=== PATIENT | male | born 1970 | race African-American/Black ===

== ENCOUNTER → 2016-09-06 | Outpatient (CLI) | payer OTHER ==
--- NOTE | 2016-09-06 12:35 | CT ---
EXAMINATION TYPE: CT lumbar spine wo con DATE OF EXAM: 09/06/2016 12:28 PM COMPARISON: NONE HISTORY: Patient complains of lower back pain with radiation to the right leg. CT DLP: 1292.8 mGycm CONTRAST: Unenhanced CT of the lumbar spine is performed.. Unenhanced CT of the lumbar spine was performed. Bone and soft tissue window settings are submitted as well as coronal and sagittal reconstructions. L1-L2: Normal disc space height. No disc herniation protrusion or central stenosis. No facet joint arthropathy. No evidence for foraminal encroachment. L2-L3: Normal disc space height. No disc herniation protrusion or central stenosis. No facet joint arthropathy. No evidence for foraminal encroachment. L3-L4: Normal disc space height. No disc herniation protrusion or central stenosis. No facet joint arthropathy. No evidence for foraminal encroachment. L4-L5: Mild degenerative disc space narrowing. Right paracentral disc herniation which effaces the ve ntral thecal sac. There is right lateral recess stenosis. Right foraminal encroachment noted. Borderl ine central stenosis suggested. L5-S1: Mild degenerative narrowing. Broad-based posterior disc bulge. Mild effacement ventral thecal sac. No larry herniation protrusion or central stenosis. No paraspinal masses are identified. Lumbar segments are free if fracture. IMPRESSION: 1. Right paracentral disc herniation at L4-5 with right lateral recess stenosis and borderline centra l stenosis.
== END | disposition home or self-care (01) ==
LOC: RADCTMAIN 11:57
PROVIDERS: ATTEND Family Medicine
DX: M48.06 Spinal stenosis, lumbar region (principal); M51.26 Other intervertebral disc displacement, lumbar region
CPT/HCPCS: 72131

== ENCOUNTER → 2016-11-30 | Outpatient (CLI) | payer OTHER ==
[2016-11-24 11:49] VITALS: BMI 31.4
[2016-11-30 13:46] VITALS: BP 156/95; PULSE 112; RESP 16; TEMP 98.6
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
== END | disposition home or self-care (01) ==
LOC: PNWHC3 13:13
PROVIDERS: ATTEND Anesthesiology
DX: M54.5 Low back pain (principal); Z53.9 Procedure and treatment not carried out, unspecified reason

== ENCOUNTER → 2016-12-14 | Outpatient (CLI) | payer OTHER ==
--- NOTE | 2016-12-14 07:50 | MR ---
EXAMINATION TYPE: MR cervical spine wo con DATE OF EXAM: 12/14/2016 7:32 AM COMPARISON: NONE HISTORY: CERVICAL SPONDYLOSIS MYOPATHY Multiplanar MultiSpin echo imaging of the cervical spine was performed. Comparison: none C2-C3: No evidence for degenerative disc disease. No disc bulge/herniation or protrusion. No Canal stenosis. Foramina are patent bilaterally. C3-C4: There is mild disc desiccation. Right paracentral disc protrusion effaces the ventral thecal s ac. Minimal ventral CORD contact suggested. No evidence for central stenosis or compressive myelopath y. Degenerative change of the cervical apophyseal joints resulting in mild bilateral right greater th an left encroachment. C4-C5: No evidence for degenerative disc disease. No disc bulge/herniation or protrusion. No Canal stenosis. Foramina are patent bilaterally. C5-C6: Moderate disc desiccation noted. Broad-based subligamentous herniation is mild in degree. No e vidence for cord contact or central stenosis. Mild left foraminal encroachment noted. C6-C7: No evidence for degenerative disc disease. No disc bulge/herniation or protrusion. No Canal stenosis. Foramina are patent bilaterally. C7-T1: No evidence for degenerative disc disease. No disc bulge/herniation or protrusion. No Canal stenosis. Foramina are patent bilaterally. Cervical segments are intact. There is normal alignment. Cervical spinal cord is of normal signal. Craniovertebral junction relationships are within normal limits. IMPRESSION: 1. Degenerative disc disease as discussed. 2. Right paracentral disc protrusion at C3-4 with minimal ventral CORD contact suggested. Foraminal e ncroachment as discussed. 3. Broad-based mild subligamentous herniation C5-6 as discussed above.
== END | disposition home or self-care (01) ==
LOC: RADMRIMAIN 06:55
PROVIDERS: ATTEND Anesthesiology
DX: M50.022 Cervical disc disorder at C5-C6 level with myelopathy (principal); M50.01 Cervical disc disorder with myelopathy, high cervical region; M50.00 Cervical disc disorder with myelopathy, unspecified cervical region
CPT/HCPCS: 72141